=== PATIENT | female | born 1935 | race Caucasian/White ===

== ENCOUNTER 2021-09-26 10:20 | Emergency (ER) | payer MEDICARE, BC ==
[~2021-09-26] VITALS: Ht 152.4 cm; Wt 71.7 kg
[~2021-09-26 10:20] MED LIST: ACET-2154 PO; ASPI81TA31 PO; ATOR10TA PO; CALCIUM; DIVA500T2 PO; FISH OIL; FOLIC ACID; IRON; LIPITOR; MULT-594 PO; PROTONIX; QUET300T2 PO; QUET50TA PO; TOLT4CAP PO; VITAMIN D3
--- NOTE | 2021-09-26 10:36 | NUR ---
Dr Valdovinos at the bedside for MSE.
[2021-09-26 11:25] LABS: HEMATOCRIT 40.8 % (31.2-41.9); MEAN CORPUSCULAR HEMOGLOBIN 30.9 uug (24.7-32.8); MEAN CORPUSCULAR VOLUME 91.9 fL (75.5-95.3); PLATELET COUNT (AUTO) 209 K/uL (179-408)
[2021-09-26 11:40] LABS: BILIRUBIN,DIRECT 0.1 mg/dL (0.0-0.2); BILIRUBIN,TOTAL 0.6 mg/dL (0.2-1.0); CREATININE 0.6 mg/dL (0.6-1.3); POTASSIUM 3.7 mmol/L (3.5-5.1)
--- NOTE | 2021-09-26 11:55 | NUR ---
Pt back from Ct scan, resting in bed, NAD noted.
[2021-09-26 12:59] LABS: CREATININE 0.6 mg/dL (0.6-1.3); POTASSIUM 3.8 mmol/L (3.5-5.1)
--- NOTE | 2021-09-26 13:27 | NUR ---
Provided lunch tray per pt/caregiver request. While eating, pt started to spitting large amounts of mucus and sliva. Removed tray and reposition the pt and notified Dr Valdovinos. Pt 02 sat didn't change and remained at 97%.
[2021-09-26] MEDS ORDERED: ONDANSETRON 4 MG/2 ML VIAL IV ONE (13:30)
[2021-09-26] MEDS ORDERED: ONDANSETRON 4 MG/2 ML VIAL ONE (13:36)
--- NOTE | 2021-09-26 13:40 | NUR ---
Pt signed consent for IV contrasted CT, placed in the chart.
[2021-09-26] MEDS ORDERED: IOHEXOL 300MG/ML 100 ML INFUS..BTL ONE (13:46)
[2021-09-26] MEDS ORDERED: IV NORMAL SALINE 250 ML IV ONE (13:46)
[2021-09-26] MEDS ORDERED: SWABABLE VALVE TRANSFER SET EA MC ONE (13:46)
--- NOTE | 2021-09-26 13:47 | NUR ---
Pt out of ER for CT scan.
--- NOTE | 2021-09-26 14:05 | NUR ---
Pt back from Ct scan, sitting up in bed. Denies nausea and not spitting any longer.
--- NOTE | 2021-09-26 14:30 | NUR ---
Pt able to tolorate PO intake.
--- NOTE | 2021-09-26 15:03 | NUR ---
IV removed. Catheter intact and site benign. Pressure and 4x4 gauze applied to site. No bleeding noted.
--- NOTE | 2021-09-26 15:06 | NUR ---
Patient discharged to home in stable condition. Written and verbal after care instructions given. Patient verbalizes understanding of instructions. Stressed follow up or return to ER for worsening s/s.
[2021-09-26 15:07] VITALS: BP 133/87
== END 2021-09-26 15:15 | disposition home or self-care (01) ==
LOC: ER 10:20
DX: T14.8XXA Other injury of unspecified body region, initial encounter (principal); W01.0XXA Fall on same level from slipping, tripping and stumbling without subsequent striking against object, initial encounter; Y92.012 Bathroom of single-family (private) house as the place of occurrence of the external cause; F31.9 Bipolar disorder, unspecified; E78.5 Hyperlipidemia, unspecified; T17.928A Food in respiratory tract, part unspecified causing other injury, initial encounter; R09.89 Other specified symptoms and signs involving the circulatory and respiratory systems; X58.XXXA Exposure to other specified factors, initial encounter; Y93.89 Activity, other specified; Y92.230 Patient room in hospital as the place of occurrence of the external cause; K21.9 Gastro-esophageal reflux disease without esophagitis; Z88.6 Allergy status to analgesic agent; R91.8 Other nonspecific abnormal finding of lung field; Z20.822 Contact with and (suspected) exposure to COVID-19; Z79.899 Other long term (current) drug therapy; R00.0 Tachycardia, unspecified; M19.042 Primary osteoarthritis, left hand
CPT/HCPCS: 36415; 70450; 70491; 71045; 72125; 73140; 74176; 80048 ×2; 80076; 83605; 83690; 83880; 84484; 85025; 85379; 85730; 86850; 86900; 86901; 87040 ×2; 87426; 93005; 96374; 99285; J2405; Q9967; 70030-TC; A4663; J7050

== ENCOUNTER 2023-09-17 12:59 | Inpatient (IN) | payer MEDICARE, BC ==
[~2023-09-17] VITALS: Ht 153 cm; Wt 59.9 kg
[2023-09-17 17:00] VITALS: BP 115/58; TEMP 98.2; O2SAT 98
[2023-09-17] MEDS ORDERED: BRIM5DRO5 OP (19:20)
[2023-09-17] MEDS ORDERED: PANT40TA2 PO (19:20)
[2023-09-17] MEDS ORDERED: CYAN250L PO (19:20)
[2023-09-17] MEDS ORDERED: LACT-225 PO (19:20)
[2023-09-17] MEDS ORDERED: CHOL400T PO (19:20)
[2023-09-17] MEDS ORDERED: [UNRECOGNIZED DRUG - OTHER] TOP (19:20)
[2023-09-17] MEDS ORDERED: FLUT16SP16 BNOSTRILS (19:20)
[2023-09-17] MEDS ORDERED: MEMA10TA PO (19:20)
[2023-09-17] MEDS ORDERED: CEFE2FRO IV (19:20)
[2023-09-17] MEDS ORDERED: FERR325T24 PO (19:20)
[2023-09-17] MEDS ORDERED: MAGN400O6 PO (19:20)
[2023-09-17] MEDS ORDERED: ENOX40DI SQ (19:20)
[2023-09-17] MEDS ORDERED: BRIN10DR EACHEYE (19:20)
[2023-09-17] MEDS ORDERED: BISA10SU95 RC (19:20)
[2023-09-17] MEDS ORDERED: POLY119P2 PO (19:20)
[2023-09-17] MEDS ORDERED: ASCO500C17 PO (19:20)
[2023-09-17 20:20] VITALS: BP 122/56; TEMP 98.1; O2SAT 96
[2023-09-17] MEDS ORDERED: POLYETHYLENE GLYCOL 3350 238 GM POWDER PO PRN (22:00)
[2023-09-17] MEDS ORDERED: CEFEPIME HCL 1 G VIAL IM SCH (22:00)
[2023-09-17] MEDS ORDERED: MAGNESIUM HYDROXIDE 30 ML LIQUID UDC PO PRN (22:00)
[2023-09-17] MEDS ORDERED: CEFEPIME HCL 2 GM in IV DEXTROSE 5% 100 ML IV SCH (23:00)
[2023-09-17] MEDS ORDERED: CEFEPIME HCL 1 G VIAL ONE (23:56)
[2023-09-18] VITALS (7 sets, daily range): BP systolic 113–126; BP diastolic 55–84; TEMP 97.6–98.9; O2SAT 93–98
[2023-09-18] MEDS: CEFEPIME HCL 2 GM in IV DEXTROSE 5% 100 ML IV SCH (00:28)
[2023-09-18] MEDS: ACETAMINOPHEN 325 MG TABLET PO PRN (02:39)
[2023-09-18] MEDS ORDERED: BISACODYL 10 MG SUPP.RECT RC PRN (06:15)
[2023-09-18] MEDS: PANTOPRAZOLE SODIUM 40 MG TABLET.DR PO SCH (06:30)
[2023-09-18] MEDS: MULTIVITAMINS,THERAPEUTIC TABLET PO SCH (08:26)
[2023-09-18] MEDS: ASPIRIN 81 MG TAB.CHEW PO SCH (08:26)
[2023-09-18] MEDS: ENSURE ENLIVE (VAN) 240 ML LIQUID PO SCH (08:27)
[2023-09-18] MEDS: FERROUS SULFATE 325 MG TABEC PO SCH (08:27)
[2023-09-18] MEDS: MEMANTINE HCL 10 MG TABLET PO SCH (08:27)
[2023-09-18] MEDS: ASCORBIC ACID 500 MG TABLET PO SCH (08:27)
[2023-09-18] MEDS: CHOLECALCIFEROL 1,000 UNIT TABLET PO SCH (08:27)
[2023-09-18] MEDS: CYANOCOBALAMIN 1,000 MCG TABLET PO SCH (08:28)
[2023-09-18] MEDS ORDERED: BRINZOLAMIDE 1% OPHT DROP 10 ML BOTTLE EACHEYE SCH (09:00)
[2023-09-18] MEDS ORDERED: TOLTERODINE LA 2 MG CAP.SR.24H PO SCH (09:00)
[2023-09-18] MEDS ORDERED: FLUTICASONE PROP NASAL SPRAY 16 GM BOTTLE NS SCH (09:00)
[2023-09-18] MEDS ORDERED: COMPLEAT MODIFIED FORMULA 1000 ML LIQUID PO SCH (09:00)
[2023-09-18] MEDS ORDERED: BISACODYL 10 MG SUPP.RECT RC SCH (09:00)
[2023-09-18] MEDS ORDERED: CEFEPIME HCL 1 G VIAL IV SCH (09:00)
[2023-09-18] MEDS ORDERED: TOLT2TAB2 PO (10:04)
[2023-09-18] MEDS: TOLTERODINE 2 MG TABLET PO SCH (10:30)
[2023-09-18] MEDS: ENOXAPARIN SODIUM 40 MG/0.4 ML DISP.SYRIN SQ SCH (10:30)
[2023-09-18] MEDS ORDERED: LATA2.5D15 EACHEYE (10:46)
[2023-09-18] MEDS: GUAIFENESIN/DEXTROMETHORPHAN 5 ML UDC PO PRN (12:23)
[2023-09-18] MEDS: BRIMONIDINE 0.2% OPHT DROP 10 ML BOTTLE OP SCH (12:25)
[2023-09-18] MEDS: ALBUTEROL SULFATE 1.25 MG/3 ML NEBU NEB PRN (16:05)
[2023-09-18] MEDS: DORZOLAMIDE 2% OPHT DROP 10 ML BOTTLE EACHEYE SCH (16:07)
[2023-09-18] MEDS: LATANOPROST OPHT DROP 2.5 ML BOTTLE EACHEYE SCH (20:20)
[2023-09-18] MEDS: QUETIAPINE FUMARATE 100 MG TABLET PO SCH (20:21)
[2023-09-18] MEDS: ATORVASTATIN 10 MG TABLET PO SCH (20:21)
[2023-09-19] VITALS (8 sets, daily range): BP systolic 125–161; BP diastolic 56–82; TEMP 97.7–98.9; O2SAT 94–100
[2023-09-19 07:42] LABS: BASOPHILS # (AUTO) 0.1 K/UL (0.0-0.2); BASOPHILS % (AUTO) 0.6 % (0.0-2.0); EOSINOPHILS # (AUTO) 0.3 K/uL (0.0-0.7); EOSINOPHILS % (AUTO) 3.4 % (0.0-7.0); HEMATOCRIT 36.4 % (31.2-41.9); HEMOGLOBIN 12.2 g/dL (10.9-14.3); LYMPHOCYTES # (AUTO) 1.8 K/uL (0.8-4.8); LYMPHOCYTES % (AUTO) 18.7 % (20.5-51.5); MEAN CORPUSCULAR HEMOGLOBIN 30.7 uug (24.7-32.8); MEAN CORPUSCULAR HGB CONC 34 g/dL (32.3-35.6); MEAN CORPUSCULAR VOLUME 91.4 fL (75.5-95.3); MONOCYTES # (AUTO) 0.9 K/uL (0.1-1.30); MONOCYTES % (AUTO) 8.8 % (0.0-11.0); NEUTROPHILS # (AUTO) 6.7 K/uL (1.8-8.9); NEUTROPHILS % (AUTO) 68.5 % (38.5-71.5); PLATELET COUNT (AUTO) 262 K/uL (179-408); RED BLOOD CELL COUNT(AUTO) 3.99 MIL/uL (3.63-4.92); RED CELL DISTRIBUTION WIDTH 13.5 % (12.3-17.7); WHITE BLOOD COUNT (AUTO) 9.8 K/uL (3.8-11.8)
[2023-09-19 07:45] LABS: DIFFERENTIAL COMMENT 1
[2023-09-19 08:03] LABS: THYROID STIMULATING HORMONE 2.637 mIU/mL (0.358-3.740)
[2023-09-19 08:17] LABS: IRON, SERUM 77 ug/dL (50-175)
[2023-09-19 08:19] LABS: ALANINE AMINOTRANSFERASE 13 U/L (14-59); ALBUMIN 2.6 g/dL (3.4-5.0); ALKALINE PHOSPHATASE 65 U/L (50-136); ASPARTATE AMINOTRANSFERASE 15 U/L (15-37); BILIRUBIN,TOTAL 0.4 mg/dL (0.2-1.0); CALCIUM 9.5 mg/dL (8.5-10.1); CARBON DIOXIDE 33 mmol/L (21-32); CHLORIDE 102 mmol/L (98-107); CHOLESTEROL 139 mg/dL (<200); CREATININE 0.8 mg/dL (0.6-1.3); GLUCOSE 121 mg/dL (74-106); HDL CHOLESTEROL 35 mg/dL (40-60); MAGNESIUM 2.3 mg/dL (1.8-2.4); PHOSPHOROUS 3.5 mg/dL (2.5-4.9); POTASSIUM 3.6 mmol/L (3.5-5.1); SODIUM SERUM 141 mmol/L (136-145); TOTAL PROTEIN, SERUM 7.3 g/dL (6.4-8.2); TRIGLYCERIDES 105 MG/DL (30-150); UREA NITROGEN, BLOOD 20 mg/dL (7-18)
[2023-09-20] VITALS (10 sets, daily range): BP systolic 118–142; BP diastolic 60–78; TEMP 98.2–98.3; O2SAT 94–99
[2023-09-20] MEDS: ALBUTEROL SULFATE 1.25 MG/3 ML NEBU NEB SCH (15:51)
[2023-09-21] VITALS (12 sets, daily range): BP systolic 115–145; BP diastolic 50–96; TEMP 97–98; O2SAT 82–99
[2023-09-22] VITALS (11 sets, daily range): BP systolic 100–127; BP diastolic 60–74; TEMP 97.4–97.8; O2SAT 94–100
[2023-09-22] MEDS: FLUTICASONE PROP NASAL SPRAY 16 GM BOTTLE NS PRN (09:12)
[2023-09-23] VITALS (12 sets, daily range): BP systolic 112–146; BP diastolic 52–71; TEMP 97.4–99.1; O2SAT 90–100
[2023-09-23] MEDS: ENOXAPARIN SODIUM 30 MG/0.3 ML DISP.SYRIN SUBCUT SCH (10:24)
[2023-09-24] VITALS (9 sets, daily range): BP systolic 103–120; BP diastolic 56–64; TEMP 97.8–98.8; O2SAT 96–99
[2023-09-25] VITALS (11 sets, daily range): BP systolic 105–138; BP diastolic 52–75; TEMP 98.1–98.8; O2SAT 96–99
[2023-09-25] MEDS: MIRALAX 17 GM POWD.PACK PO PRN (15:16)
[2023-09-25] MEDS: ENSURE ENLIVE (VAN) 240 ML LIQUID PO SCH (16:57)
[2023-09-26] VITALS (11 sets, daily range): BP systolic 108–112; BP diastolic 59–67; TEMP 98–98.7; O2SAT 94–99
[2023-09-27] VITALS (9 sets, daily range): BP systolic 104–134; BP diastolic 55; TEMP 94.6–98.1; O2SAT 95–99
[2023-09-28] VITALS (11 sets, daily range): BP systolic 109–122; BP diastolic 47–73; TEMP 97.7–98.7; O2SAT 91–98
[2023-09-29] VITALS (11 sets, daily range): BP systolic 113–140; BP diastolic 55–76; TEMP 98.1–98.6; O2SAT 94–99
[2023-09-29 12:24] LABS: BASOPHILS # (AUTO) 0.1 K/UL (0.0-0.2); BASOPHILS % (AUTO) 0.7 % (0.0-2.0); DIFFERENTIAL COMMENT 0; EOSINOPHILS # (AUTO) 0.2 K/uL (0.0-0.7); EOSINOPHILS % (AUTO) 2.4 % (0.0-7.0); HEMATOCRIT 36.2 % (31.2-41.9); HEMOGLOBIN 12.1 g/dL (10.9-14.3); LYMPHOCYTES # (AUTO) 2.4 K/uL (0.8-4.8); LYMPHOCYTES % (AUTO) 23.8 % (20.5-51.5); MEAN CORPUSCULAR HEMOGLOBIN 30.6 uug (24.7-32.8); MEAN CORPUSCULAR HGB CONC 34 g/dL (32.3-35.6); MEAN CORPUSCULAR VOLUME 91.3 fL (75.5-95.3); MONOCYTES # (AUTO) 0.9 K/uL (0.1-1.30); NEUTROPHILS # (AUTO) 6.4 K/uL (1.8-8.9); NEUTROPHILS % (AUTO) 64.1 % (38.5-71.5); PLATELET COUNT (AUTO) 291 K/uL (179-408); RED BLOOD CELL COUNT(AUTO) 3.96 MIL/uL (3.63-4.92); RED CELL DISTRIBUTION WIDTH 13.9 % (12.3-17.7)
[2023-09-30] VITALS (10 sets, daily range): BP systolic 106–137; BP diastolic 48–65; TEMP 97.5–98.3; O2SAT 93–98
[2023-10-01] VITALS (9 sets, daily range): BP systolic 114–125; BP diastolic 49–60; TEMP 98–98.8; O2SAT 94–99
[2023-10-02] VITALS (12 sets, daily range): BP systolic 93–123; BP diastolic 45–58; TEMP 97.5–98.7; O2SAT 93–99
[2023-10-03] VITALS (7 sets, daily range): BP systolic 106–136; BP diastolic 47–61; TEMP 97.2–98.2; O2SAT 94–99
[2023-10-03] MEDS: REMEDY ESSENTIAL ZINC PASTE 113 GM TOP PRN (08:51)
== END 2023-10-03 15:30 | disposition home health service (06) | DRG 193 ==
PROVIDERS: ADMIT Physical Medicine & Rehabilitation Pain Medicine; ATTEND Physical Medicine & Rehabilitation Pain Medicine
PROC: 05HY33Z Insertion of Infusion Device into Upper Vein, Percutaneous Approach (ICD-10-PCS; principal; 2023-09-20)
DX: J18.9 Pneumonia, unspecified organism (principal); G93.41 Metabolic encephalopathy; D68.59 Other primary thrombophilia; E44.0 Moderate protein-calorie malnutrition; G93.40 Encephalopathy, unspecified; K92.1 Melena; E78.5 Hyperlipidemia, unspecified; N32.81 Overactive bladder; K21.9 Gastro-esophageal reflux disease without esophagitis; R53.1 Weakness; G30.9 Alzheimer's disease, unspecified; F02.80 Dementia in other diseases classified elsewhere, unspecified severity, without behavioral disturbance, psychotic disturbance, mood disturbance, and anxiety; E66.9 Obesity, unspecified; Z68.25 Body mass index [BMI] 25.0-25.9, adult; H40.9 Unspecified glaucoma; Z95.2 Presence of prosthetic heart valve; M19.90 Unspecified osteoarthritis, unspecified site
CPT/HCPCS: 36415; 70450; 71045; 83550; 83735; 84100; 84443; 85025; 94640; 94664; 94760; 97535-GO-CO; A4663; A6213; C1758; J0692; J1650; J3535